=== PATIENT | female | born 1965 | race Caucasian/White ===

== ENCOUNTER → 2016-10-29 | Outpatient (CLI) | payer OTHER ==
[2016-10-29 13:05] VITALS: BP 144/87; PULSE 97; RESP 16; TEMP 98.2; BMI 31.9
--- NOTE | 2016-10-29 14:22 | P.HPBAR ---
Bariatric H&P - History & Physicial H&P Date: 10/29/16 History & Physicial: Visit/CC: band fill Patient initial contact: Initial weight: 108.862 kg Initial weight in pounds: 240.00 Height: 5 ft 5.5 in Initial BMI: 39.3 Last weight: Current weight: 88.541 kg Current weight in pounds: 195.20 Current BMI: 31.9 [place] body weight (based on NIH guidelines): 57.833 kg Excess body weight loss: 39.8% The patient is a 51 year-old F who presents for Bariatric Assessment. Patient presents today for lab band follow up. She has not been seen for over a year and half. She currently feels hungry and wishes to have a fill. Past Medical History Past Medical History: Diabetes Mellitus, Hyperlipidemia, Hypertension, Thyroid Disorder Additional Past Medical History / Comment(s): Type 2 DM, Hypothyroidism, History of Any Multi-Drug Resistant Organisms: None Reported Past Surgical History: Adenoidectomy, Back Surgery, Bariatric Surgery, Section, Tonsillectomy, Tubal Ligation Additional Past Surgical History / Comment(s): Lap band 2004, panniculectomy 2005 Past Anesthesia/Blood Transfusion Reactions: No Reported Reaction Past Psychological History: No Psychological Hx Reported Smoking Status: Never smoker Surgical - Exam Vital Signs Temp Pulse Resp BP 98.2 F 97 16 144/87 10/29/16 13:02 10/29/16 13:02 10/29/16 13:02 10/29/16 13:02 - General well developed, well nourished, no distress - Eyes PERRL - ENT normal pinna - Neck no masses - Respiratory normal expansion - Cardiovascular Rhythm: regular - Abdomen Abdomen: soft, non tender Bariatric Assessment & Plan Plan: The patient's lap band was adjusted. She currently has 1 mL in the band. She was filled to 2 mL. She was able to water without difficulty. She'll follow- up in one month. Bariatric Checklist Checklist: Plan: Checklist: EGD: 1. Hiatal hernia: 2. H. Pylori: HgbA1c: Vitamin D: Smoking: Never smoker Primary care physician referral: Lee Lozada) Psychiatry clearance: Cardiology clearance: Sleep study: Diet journal: VTE risk score: VTE risk level: Rehab needs at discharge:
== END | disposition home or self-care (01) ==
LOC: BARWHC3 12:44
PROVIDERS: ATTEND Surgery
DX: Z09 Encounter for follow-up examination after completed treatment for conditions other than malignant neoplasm (principal); E11.9 Type 2 diabetes mellitus without complications; E78.5 Hyperlipidemia, unspecified; I10 Essential (primary) hypertension; Z98.84 Bariatric surgery status
CPT/HCPCS: 99202

== ENCOUNTER → 2017-02-04 | Outpatient (CLI) | payer OTHER ==
[2017-02-04 16:01] VITALS: BP 118/75; PULSE 98; RESP 16; TEMP 97.1; BMI 29.9
--- NOTE | 2017-02-04 16:43 | P.HPBAR ---
Bariatric H&P - History & Physicial H&P Date: 02/04/17 History & Physicial: Visit/CC: band adj Patient initial contact: Initial weight: 108.862 kg Initial weight in pounds: 240.00 Height: 5 ft 5 in Initial BMI: 39.9 Last weight: Current weight: 81.732 kg Current weight in pounds: 180.00 Current BMI: 29.9 [place] body weight (based on NIH guidelines): 56.699 kg Excess body weight loss: 52.1% The patient is a 51 year-old F who presents for Bariatric Assessment. Patient presents today for LAP-BAND adjustment. She's had some mild dysphagia. And GERD. Past Medical History Past Medical History: Diabetes Mellitus, Hyperlipidemia, Hypertension, Thyroid Disorder Additional Past Medical History / Comment(s): Type 2 DM, Hypothyroidism, History of Any Multi-Drug Resistant Organisms: None Reported Past Surgical History: Adenoidectomy, Back Surgery, Bariatric Surgery, Section, Tonsillectomy, Tubal Ligation Additional Past Surgical History / Comment(s): Lap band 2004, panniculectomy 2005 Past Anesthesia/Blood Transfusion Reactions: No Reported Reaction Past Psychological History: No Psychological Hx Reported Smoking Status: Never smoker Surgical - Exam Vital Signs Temp Pulse Resp BP 97.1 F L 98 16 118/75 02/04/17 15:59 02/04/17 15:59 02/04/17 15:59 02/04/17 15:59 - General well developed, no distress - Eyes PERRL - ENT normal pinna - Neck no masses - Respiratory normal expansion - Cardiovascular Rhythm: regular - Abdomen Abdomen: soft, non tender Bariatric Assessment & Plan Plan: The patient LAP-BAND was adjusted. She had 0.5 mL removed from her band. She currently is 1.5 mL in the band. She will follow-up in 4 weeks. Bariatric Checklist Checklist: Plan: Checklist: EGD: 1. Hiatal hernia: 2. H. Pylori: HgbA1c: Vitamin D: Smoking: Never smoker Primary care physician referral: Lee Singletary ([place]) Psychiatry clearance: Cardiology clearance: Sleep study: Diet journal: VTE risk score: VTE risk level: Rehab needs at discharge:
== END ==
LOC: BARWHC3 14:19
PROVIDERS: ATTEND Surgery
DX: Z48.815 Encounter for surgical aftercare following surgery on the digestive system (principal); Z98.84 Bariatric surgery status
CPT/HCPCS: 99212

== ENCOUNTER → 2019-12-02 | Outpatient (CLI) | payer OTHER ==
[2019-12-02 09:36] VITALS: BP 113/80; PULSE 97; RESP 18; TEMP 98; BMI 31.3
--- NOTE | 2019-12-02 09:55 | P.HPBAR ---
Bariatric H&P - History & Physicial H&P Date: 12/02/19 History & Physicial: Visit/CC: band adjustment Patient initial contact: Initial weight: 108.862 kg Initial weight in pounds: 240.00 Height: 5 ft 5.5 in Initial BMI: 39.3 Last weight: Current weight: 86.636 kg Current weight in pounds: 191.00 Current BMI: 31.3 [place] body weight (based on NIH guidelines): 57.833 kg Excess body weight loss: 43.5% The patient is a 54 year-old F who presents for Bariatric Assessment. Patient presents due to dysphagia. She's had trouble with aspiration pneumonia. She is requesting fluid removed from her band. Past Medical History Past Medical History: Diabetes Mellitus, Hyperlipidemia, Hypertension, Thyroid Disorder Additional Past Medical History / Comment(s): Type 2 DM, Hypothyroidism, History of Any Multi-Drug Resistant Organisms: None Reported Past Surgical History: Adenoidectomy, Back Surgery, Bariatric Surgery, Section, Tonsillectomy, Tubal Ligation Additional Past Surgical History / Comment(s): Lap band 2004, panniculectomy 2005 Past Anesthesia/Blood Transfusion Reactions: No Reported Reaction Past Psychological History: No Psychological Hx Reported Smoking Status: Never smoker Surgical - Exam Vital Signs Temp Pulse Resp BP 98.0 F 97 18 113/80 12/02/19 09:32 12/02/19 09:32 12/02/19 09:32 12/02/19 09:32 - General well developed, well nourished, no distress - Eyes PERRL - ENT normal pinna - Neck no masses - Respiratory normal expansion - Cardiovascular Rhythm: regular - Abdomen Abdomen: soft, non tender Bariatric Assessment & Plan Plan: The patient's lap band was adjusted. 1.5 mL was removed from the band. She is 0 mL and the antrum appeared she'll follow-up in 4 weeks. She is also given a order for an esophagram upper GI to be performed at her home [facility]. Bariatric Checklist Checklist: Plan: Checklist: EGD: 1. Hiatal hernia: 2. H. Pylori: HgbA1c: Vitamin D: Smoking: Never smoker Primary care physician referral: Lee Lozada) Psychiatry clearance: Cardiology clearance: Sleep study: Diet journal: VTE risk score: VTE risk level: Rehab needs at discharge:
== END | disposition home or self-care (01) ==
LOC: BARWHC3 08:46
PROVIDERS: ATTEND Surgery
DX: Z46.51 Encounter for fitting and adjustment of gastric lap band (principal); Z98.84 Bariatric surgery status; Z98.51 Tubal ligation status
CPT/HCPCS: 99212

== ENCOUNTER → 2020-01-11 | Outpatient (CLI) | payer OTHER ==
[2020-01-11 13:27] VITALS: BP 124/87; PULSE 87; RESP 16; TEMP 98.2; BMI 32.5
--- NOTE | 2020-01-11 14:39 | P.HPBAR ---
Bariatric H&P - History & Physicial H&P Date: 01/11/20 History & Physicial: Visit/CC: egd/band f/u Patient initial contact: Initial weight: 108.862 kg Initial weight in pounds: 240.00 Height: 5 ft 5.5 in Initial BMI: 39.3 Last weight: Current weight: 90.265 kg Current weight in pounds: 199.00 Current BMI: 32.5 [place] body weight (based on NIH guidelines): 57.833 kg Excess body weight loss: 36.4% The patient is a 54 year-old F who presents for Bariatric Assessment. Patient presents today for lab band follow up. She currently is hungry. Her recent esophagram shows no evidence of gastric prolapse or slipped lap band. There is no evidence of any esophageal obstruction. Patient's currently hungry and requesting a fill Past Medical History Past Medical History: Diabetes Mellitus, Hyperlipidemia, Hypertension, Thyroid Disorder Additional Past Medical History / Comment(s): Type 2 DM, Hypothyroidism, History of Any Multi-Drug Resistant Organisms: None Reported Past Surgical History: Adenoidectomy, Back Surgery, Bariatric Surgery, Section, Tonsillectomy, Tubal Ligation Additional Past Surgical History / Comment(s): Lap band 2004, panniculectomy 2005 Past Anesthesia/Blood Transfusion Reactions: No Reported Reaction Past Psychological History: No Psychological Hx Reported Smoking Status: Never smoker Surgical - Exam Vital Signs Temp Pulse Resp BP 98.2 F 87 16 124/87 01/11/20 13:25 01/11/20 13:25 01/11/20 13:25 01/11/20 13:25 - General well developed, well nourished, no distress - Eyes PERRL - ENT normal pinna - Neck no masses - Respiratory normal expansion - Cardiovascular Rhythm: regular - Abdomen Abdomen: soft, non tender Bariatric Assessment & Plan Plan: Patient LAP-BAND was adjusted. She had 1 mL added to the band. She was able require without difficulty. She'll follow-up in 4 weeks. Bariatric Checklist Checklist: Plan: Checklist: EGD: 1. Hiatal hernia: 2. H. Pylori: HgbA1c: Vitamin D: Smoking: Never smoker Primary care physician referral: Lee Lozada) Psychiatry clearance: Cardiology clearance: Sleep study: Diet journal: VTE risk score: VTE risk level: Rehab needs at discharge:
== END | disposition home or self-care (01) ==
LOC: BARWHC3 13:06
PROVIDERS: ATTEND Surgery
DX: Z46.51 Encounter for fitting and adjustment of gastric lap band (principal); Z98.84 Bariatric surgery status
CPT/HCPCS: 99212